=== PATIENT | male | born 1995 | race African-American/Black ===

== ENCOUNTER 2016-07-19 16:49 | Emergency (ER) | payer MEDICAID ==
[~2016-07-19] VITALS: Ht 177.8 cm; Wt 72.5 kg
[2016-07-19 16:50] VITALS: BP 131/64; PULSE 55; RESP 16; O2SAT 99
--- NOTE | 2016-07-19 16:57 | PD ---
HPI . penis tingle and wants his nose and right middle finger looked at Chief Complaint: Injury Time Seen by Provider: 16:57 Travel History International Travel<30 days: No Contact w/Intl Traveler<30days: No Traveled to known affect area: No History of Present Illness HPI 21-year-old male with history of asthma here accompanied by his mom and grandma. Patient says that they can stay in the room during his examination and discussion. Patient tells me that he has a tingling in his penis. He denies any discharge or burning when urinating. He also tells me that he injured his nose previously and was aware of an old nose fracture. He never got it fixed, but recently hit his nose again 2 weeks ago and would like me to look at it. He also hit his right middle finger during football practice about one and half months ago and there some swelling over the PIP and he would like me to look at it. He is right-hand dominant, but able to use his hand without any problem. He tells me he just wants an exam. He is not able to see his flat folder as he is going to school at the [employer]. He is only in town for a short time. PFS Past Medical History Asthma: Yes Developmental Delay: No Diminished Hearing: No Immunizations Current: Yes Past Surgical History Other Surgery: Yes (SKIN BIOPSY OF BIRTHMARK IN RIGHT GROIN 2004) Social History Alcohol Use: No Tobacco Use: No Substance Use: No Allergies-Medications (Allergen,Severity, Reaction): Coded Allergies: No Known Allergies (Verified , 02/14/15) Reported Meds & Prescriptions Reported Meds & Active Scripts Active No Active Prescriptions or Reported Medications Review of Systems General / Constitutional: No: Fever Eyes: No: Visual changes HENT: No: Headaches Cardiovascular: No: Chest Pain or Discomfort Respiratory: No: Shortness of Breath Gastrointestinal: No: Abdominal Pain Genitourinary: Positive: Other (penis tingle), No: Dysuria Musculoskeletal: Positive: Other (right middle finger deformity), No: Pain Skin: No Rash Neurologic: No: Weakness Psychiatric: No: Depression Endocrine: No: Polydipsia Hematologic/Lymphatic: No: Easy Bruising Physical Exam Narrative GENERAL: AAO x 3, no acute distress, Well-nourished, well-developed patient. SKIN: Warm and dry. No visible rashes or bruising. HEAD: Normocephalic and atraumatic. EYES: No scleral icterus. No injection or drainage. ENT: No nasal drainage noted. Mucous membranes pink. Airway patent. Nose is slightly malaligned. There is no new injury present. No ecchymosis or edema. No blood in the nasal cavity. NECK: Supple, trachea midline. No JVD. CARDIOVASCULAR: Regular rate and rhythm without murmurs, gallops, or rubs. RESPIRATORY: Breath sounds equal bilaterally. No accessory muscle use. No rhonchi or rales. GASTROINTESTINAL: Abdomen soft, non-tender, nondistended. GENITAL: Kiki RN present: + drainage from penis and in underwear EXTREMITIES: No cyanosis or edema. Right middle finger with swelling at the PIP joint no acute point tenderness. Full range of motion. BACK: Nontender without obvious deformity. No CVA tenderness. PSYCH: AAO x 3, normal affect. Data Data Last Documented VS Vital Signs Date Time Temp Pulse Resp B/P Pulse Ox O2 Delivery O2 Flow Rate FiO2 07/19/16 17:14 Room Air 07/19/16 16:50 55 16 131/64 99 Orders Gc And Chlamydia Pcr (07/19/16 17:07) Azithromycin (Zithromax) (07/19/16 17:15) Ceftriaxone Inj (Rocephin Inj) (07/19/16 17:15) Sodium Chloride 0.9% Flush (Ns Flush) (07/19/16 17:15) Lidocaine 1% Inj (50 Ml) (Xylocaine 1% I (07/19/16 17:15) Labs Laboratory Tests Test 07/19/16 17:16 Chlamydia trachomatis DNA DETECTED (PCR) Neisseria gonorrhoeae DNA NOT DETECTED (PCR) [facility] Medical Decision Making Medical Screen Exam Complete: Yes Emergency Medical Condition: Yes Medical Record Reviewed: Yes Differential Diagnosis Chlamydia, gonorrhea, urethritis, old nasal fracture, old finger fracture, old finger dislocation Narrative Course 21-year-old male with history of asthma here accompanied by his mom and grandma. Patient says that they can stay in the room during his examination and discussion. Patient tells me that he has a tingling in his penis. He denies any discharge or burning when urinating. He also tells me that he injured his nose previously and was aware of an old nose fracture. He never got it fixed, but recently hit his nose again 2 weeks ago and would like me to look at it. He also hit his right middle finger during football practice about one and half months ago and there some swelling over the PIP and he would like me to look at it. He is right-hand dominant, but able to use his hand without any problem. He tells me he just wants an exam. He is not able to see his flat folder as he is going to school at the [employer]. He is only in town for a short time. Patient seen and examined. I've explained that his injuries to his nose and right little finger are all healed and no further workup warranted. I explained that there is not much that I can do for this. He does appear to have some discharge from his penis. I will check a GC PCR. I suspect chlamydia. I discussed treatment and he is opted for treatment of both chlamydia and gonorrhea. Azithromycin and Rocephin administered in the emergency department. Discussed safe sexual practices. Patient verbalized understanding of instructions, questions were answered, and thanked me for their care. I advised them if their condition worsens, please return to the nearest emergency room for further care. Diagnosis Primary Impression: Penile discharge Patient Instructions: General Instructions, Safe Sex (ED), Sexually Transmitted Diseases (ED) Additional Instructions: Please follow-up with her primary care provider. Scripts No Active Prescriptions or Reported Meds Disposition: 01 DISCHARGE HOME Condition: Stable Madina Saavedra July 19, 2016 16:57 Madina Saavedra July 19, 2016 16:57
[2016-07-19] MEDS ORDERED: cefTRIAXone 250 MG VIAL IM ONE (17:15)
[2016-07-19] MEDS ORDERED: SODIUM CHLORIDE 0.9% FLUSH 10 ML FLUSH IVF PRN (17:15)
[2016-07-19] MEDS ORDERED: AZITHROMYCIN 250 MG TAB PO ONE (17:15)
[2016-07-19] MEDS ORDERED: LIDOCAINE HCL 1% 50 ML VIAL XX ONE (17:15)
[2016-07-19 20:08] LABS: CHLAMYDIA PCR DETECTED (NOT DETECT); NEISSERIA PCR NOT DETECTED (NOT DETECT)
== END 2016-07-19 18:04 | disposition home or self-care (01) ==
LOC: NEPK 16:49
DX: R36.9 Urethral discharge, unspecified (principal); J45.909 Unspecified asthma, uncomplicated; A56.01 Chlamydial cystitis and urethritis
CPT/HCPCS: 87491; 87591; 96372; 99283; J0696